=== PATIENT | female | born 1975 ===

== ENCOUNTER 2021-10-07 11:30 | Emergency (ER) | payer OTHER ==
[~2021-10-07] VITALS: Ht 157.5 cm; Wt 63.5 kg
[2021-10-07] MEDS ORDERED: SYNTHROID50 MCG PO (11:59)
[2021-10-07] MEDS ORDERED: DOLOGESIC 500-1 EACH PO (12:00)
[2021-10-07] MEDS ORDERED: NORFLEX100MG PO (18:33)
== END 2021-10-07 20:07 | disposition home or self-care (01) ==
LOC: ER 11:30
DX: G89.11 Acute pain due to trauma (principal); G44.319 Acute post-traumatic headache, not intractable

== ENCOUNTER 2022-07-31 08:03 | Outpatient (CLI) | payer OTHER ==
[~2022-07-31 08:03] MED LIST: DOLOGESIC 500-1 EACH PO; NORFLEX100MG PO; SYNTHROID50 MCG PO
== END 2022-07-31 08:15 | disposition home or self-care (01) ==
LOC: MAMO-SONO 08:03
DX: N64.0 Fissure and fistula of nipple (principal)